=== PATIENT | male | born 1975 | race Caucasian/White ===

== ENCOUNTER 2019-01-12 09:12 | Emergency (ER) | payer OTHER ==
--- NOTE | 2019-01-12 10:16 | EDM.PDOC ---
ED HPI GENERAL MEDICAL PROBLEM - General Chief Complaint: Gastrointestinal Problem Stated Complaint: PLUGGED FEEDING TUBE Time Seen by Provider: 01/12/19 10:15 Source of Information: Reports: Patient, Family History Limitations: Reports: No Limitations - History of Present Illness INITIAL COMMENTS - FREE TEXT/NARRATIVE: pt arrived with a feeding tube with a feeding tube that was plugged. Onset: Today Duration: Hour(s): Location: Reports: Abdomen Associated Symptoms: Reports: No Other Symptoms, Other (pt had a plugged feeding tube. ) - Related Data Allergies Allergy/AdvReac Type Severity Reaction Status Date / Time amoxicillin Allergy Rash Verified 01/12/19 09:44 Home Meds: Home Meds Insulin Glarg,Human.Rec.Analog [Lantus Solostar] 5 - 15 unit SQ TID 01/12/19 [ History] Insulin Lispro [Humalog Kwikpen U-200] 32 unit INJECT DAILY 01/12/19 [History] Levothyroxine 1 tab GTUBE DAILY 01/12/19 [History] Metoprolol Tartrate 1 tab GTUBE DAILY 01/12/19 [History] Potassium Chloride [Klor-Con M20] 2 tab GTUBE DAILY 01/12/19 [History] Torsemide 1 tab GTUBE DAILY 01/12/19 [History] Social & Family History - Tobacco Use Smoking Status *Q: Never Smoker ED ROS GENERAL - Review of Systems Review Of Systems: See Below Constitutional: Reports: No Symptoms HEENT: Reports: No Symptoms Respiratory: Reports: No Symptoms Cardiovascular: Reports: No Symptoms Endocrine: Reports: No Symptoms GI/Abdominal: Reports: Other ( feeding tube was plugged. ) : Reports: No Symptoms Musculoskeletal: Reports: No Symptoms Skin: Reports: No Symptoms ED EXAM, GI/ABD - Physical Exam Exam: See Below Exam Limited By: No Limitations General Appearance: Alert, Anxious Cardiovascular: Other ( the old feeding tube was irrigated and would not open up. A new tube 18 mosotho was reinserted with no difficulty. The new tube was irrigated. ) (Male) Exam: Deferred Rectal (Males) Exam: Deferred Back Exam: Normal Inspection Extremities: Normal Inspection Neurological: Alert, Oriented, Normal Cognition Course - Vital Signs Last Recorded V/S: Last Vital Signs Temp 36.0 C 01/12/19 09:54 Pulse 110 H 01/12/19 09:54 Resp 18 01/12/19 09:54 BP 133/69 01/12/19 09:54 Pulse Ox 97 01/12/19 09:54 Departure - Departure Time of Disposition: 10:15 Disposition: Home, Self-Care 01 Condition: Fair Clinical Impression: Feeding tube blocked - Discharge Information Instructions: PEG Tube Home Guide, [id number] Referrals: PCP,None [Primary Care Provider] - Forms: ED Department Discharge Care Plan Goals: feeding tube was replaced, use as usual.
== END 2019-01-12 10:22 | disposition home or self-care (01) ==
LOC: JP.ED 09:12
DX: K94.29 Other complications of gastrostomy (principal); Z88.1 Allergy status to other antibiotic agents; Z79.899 Other long term (current) drug therapy
CPT/HCPCS: 43762; 99282-25